=== PATIENT | female | born 1990 | race Two or more races ===

== ENCOUNTER 2019-06-02 08:32 | Inpatient (IN) | payer MEDICAID ==
[2019-06-02] VITALS (7 sets, daily range): BP systolic 97–105; BP diastolic 52–66
[~2019-06-02] VITALS: Ht 162.6 cm; Wt 58.1 kg
--- NOTE | 2019-06-02 08:43 | NUR ---
patient came in to the er c/o abd pain radiating to r lower back since this morning, +nausea vomiting. on room air, breathing evenly and unlabored, kept comfortable, will continue to monitor accordingly.
--- NOTE | 2019-06-02 08:44 | NUR ---
urine collected and sent to lab
[2019-06-02] MEDS ORDERED: ONDANSETRON HCL/PF 4 MG/2 ML VIAL IVP ONE ×2 (09:00→10:30)
[2019-06-02] MEDS ORDERED: KETOROLAC TROMETHAMINE INJ 30 MG/ML VIAL IV ONE (09:00)
[2019-06-02] MEDS ORDERED: IV NS 0.9% 1,000 ML BAG IV ONE (09:00)
[2019-06-02] MEDS ORDERED: KETOROLAC TROMETHAMINE 15 MG/ML VIAL ONE (09:02)
[2019-06-02] MEDS ORDERED: ONDANSETRON HCL/PF 4 MG/2 ML VIAL ONE ×2 (09:02→10:23)
--- NOTE | 2019-06-02 09:07 | NUR ---
blood drawned and sent to lab
[2019-06-02 09:14] LABS: BASOPHILS % (AUTO) 0.2 % (0.0-2.0); EOSINOPHILS % (AUTO) 0.2 % (0.0-6.0); HEMATOCRIT 42 % (33-45); HEMOGLOBIN 14.2 g/dL (11.5-14.8); MEAN CORPUSCULAR HGB CONC 34 g/dl (31.0-36.0); MEAN CORPUSCULAR VOLUME 91 fL (82-100); MONOCYTES # (AUTO) 0.4 /CMM (0.1-1.30); MONOCYTES % (AUTO) 4.2 % (2.0-12.0); NEUTROPHILS % (AUTO) 85.4 % (43.0-81.0); PLATELET COUNT (AUTO) 205 /CMM (150-450); RED BLOOD CELL COUNT(AUTO) 4.57 MIL/uL (4.0-5.2); WHITE BLOOD COUNT (AUTO) 10.5 K/uL (4.3-11.0)
[2019-06-02 09:16] LABS: APPEARANCE,URINE Clear (CLEAR); BILIRUBIN,URINE SMALL (NEGATIVE); BLOOD, URINE Small Ery/uL (NEGATIVE); COLOR,URINE Yellow (YELLOW); KETONES,URINE Negative (NEGATIVE); LEUKOCYTE ESTERASE ,URINE Negative (NEGATIVE); NITRITE, URINE Negative (NEGATIVE); PROTEIN,URINE Negative (NEGATIVE); UGLUCOSE Negative (NEGATIVE); UROBILINOGEN,URINE 0.2 EU/dL (0.2)
[2019-06-02 09:20] LABS: BACTERIA,URINE Few /HPF (None Seen); SQUAMOUS EPITHELIAL CELL,UR Few /HPF (None Seen); WBC,URINE 0-2 /HPF (0-3)
[2019-06-02 09:25] LABS: CALCIUM, SERUM 8.8 mg/dL (8.5-10.1); CREATININE 0.7 mg/dL (0.6-1.3); POTASSIUM 3.8 mmol/L (3.5-5.1)
[2019-06-02 09:36] LABS: BILIRUBIN,DIRECT 0.1 mg/dL (0.0-0.2); BILIRUBIN,TOTAL 0.6 mg/dL (0.2-1.0); TOTAL PROTEIN, SERUM 7.4 g/dL (6.4-8.2)
[2019-06-02] MEDS ORDERED: MORPHINE SULFATE INJ 2 MG/ML DISP.SYRIN ONE (10:23)
[2019-06-02] MEDS ORDERED: MORPHINE SULFATE INJ 2 MG/ML DISP.SYRIN IV ONE (10:30)
[2019-06-02] MEDS ORDERED: PIPERACILLIN /TAZOBACTAM 3.375 G in IV D5W 50 ML IV ONE (10:30)
--- NOTE | 2019-06-02 10:34 | NUR ---
sunday cooley its [facility]
--- NOTE | 2019-06-02 10:43 | NUR ---
[place] [place]
--- NOTE | 2019-06-02 10:46 | NUR ---
called for ms bed
--- NOTE | 2019-06-02 11:41 | NUR ---
report given to Karley ROBERTS for shana.
--- NOTE | 2019-06-02 11:54 | NUR ---
Wheeled patient via gurney accompanied by EMT in no distress. Karley at bedside to assume care.
--- NOTE | 2019-06-02 12:00 | NUR ---
MS/RN Admitting note Patient received from ER via wheelchair, A/O X4, showing no signs of acute distress or SOB. Patient weight 128 lbs. Vital signs 97/68 R 84 RR 16 T 98.0 O2 100% on RA. IV line in the LAC #18 is clean and patent. Skin is intact and patient is able to ambulate with supervision. Bed is in lowest position, side rails x2 in upright position, call light is within reach and patient is aware of how to call for assistance when needed. at the bedside. Will continue with admitting orders and current plan of care.
[2019-06-02] MEDS: IV D5/0.45 NACL 1,000 ML IV PRN (12:59)
[2019-06-02] MEDS ORDERED: MAG HYDROX/AL HYDROX/SIMETH 30 ML UDC PO PRN (13:00)
[2019-06-02] MEDS ORDERED: Z GUARD REMEDY 2 OZ OINT TP PRN (13:00)
[2019-06-02] MEDS ORDERED: ONDANSETRON HCL/PF 4 MG/2 ML VIAL IVP PRN (13:00)
[2019-06-02] MEDS ORDERED: MORPHINE SULFATE INJ 2 MG/ML DISP.SYRIN IV PRN ×2 (13:00→19:00)
[2019-06-02] MEDS ORDERED: MAGNESIUM HYDROXIDE 30 ML UDC PO PRN (13:00)
[2019-06-02] MEDS ORDERED: ZOLPIDEM TARTRATE 5 MG TABLET PO PRN (13:00)
[2019-06-02] MEDS ORDERED: ACETAMINOPHEN 325 MG TABLET PO PRN (13:00)
[2019-06-02] MEDS: PIPERACILLIN /TAZOBACTAM 3.375 G in IV D5W 100 ML IV SCH (18:13)
--- NOTE | 2019-06-02 18:47 | NUR ---
ms/rn note morphine as per Dr. Gutierrez, morphine IV changed to 2mg Q4H.
--- NOTE | 2019-06-02 18:57 | NUR ---
MS/RN Closing note Patient resting in bed, A/O x4, showing no signs of acute distress or SOB, saturating >95% on RA. Vital signs WNL. IV line on the LAC #18 is clean and running at 125 ml/hr. All patient needs met, pain medication given as needed. Patient kept NPO, awaiting for consult with Dr. Hernandez. Family is at the bedside. BEd is in lowest position, side rails x2 in upright position. Call light is within reach and patient is aware of how to call for assistance when needed. Will endorse to branch retail executive.
--- NOTE | 2019-06-02 22:20 | NUR ---
MS/RN PATIENT OFF TO OR FOR SURGERY.
[2019-06-02] MEDS ORDERED: BUPIVACAINE MPF W/EPI 0.25% 30 ML VIAL ONE (22:29)
[2019-06-02] MEDS ORDERED: MIDAZOLAM HCL 2 MG/2ML VIAL ONE (22:37)
[2019-06-02] MEDS ORDERED: SCOPOLAMINE HBR 1 EA PATCH.TD72 TD ONE (22:37)
[2019-06-02] MEDS ORDERED: ROCURONIUM BROMIDE 50 MG/5 ML ONE (22:37)
[2019-06-02] MEDS ORDERED: SEVOFLURANE 250 ML BOTTLE IH ONE (22:59)
[2019-06-02] MEDS ORDERED: DESFLURANE 240 ML BOTTLE IH ONE (22:59)
[2019-06-03] VITALS (7 sets, daily range): BP systolic 91–101; BP diastolic 45–63
--- NOTE | 2019-06-03 01:21 | NUR ---
MS/RN PATIENT CAME BACK FROM SURGERY S/P LAP APPENDECTOMY AT 0000. PATIENT WAS AWAKE, ALERT, ORIENTED, COMFORTABLE, MOVES ALL EXTREMITIES, ON VITAL SIGNS STABLE, AFEBRILE, THREE LAP SITES WITH DERMABOND. WILL MONITOR.
[2019-06-03] MEDS: IV D5/0.45 NACL 1,000 ML IV PRN (01:37)
[2019-06-03] MEDS: PIPERACILLIN /TAZOBACTAM 3.375 G in IV D5W 100 ML IV SCH ×3 (01:47→17:05)
[2019-06-03] MEDS: HYDROCODONE/APAP 5/325MG 1 EACH TABLET PO PRN ×4 (02:03→19:36)
--- NOTE | 2019-06-03 06:07 | NUR ---
MS/RN PATIENT IS AWAKE, C/O ABDOMINAL PAIN, 09/13, REQUESTED FOR PAIN MED, NORCO 1 TAB PO WA GIVEN, ALL NEEDS ATTENDED AT THIS TIME, WILL CONTINUE TO MONITOR.
[2019-06-03 06:30] LABS: BASOPHILS % (AUTO) 0.1 % (0.0-2.0); EOSINOPHILS % (AUTO) 0.2 % (0.0-6.0); HEMATOCRIT 35 % (33-45); LYMPHOCYTES % (AUTO) 16.5 % (20.0-44.0); MEAN CORPUSCULAR HGB CONC 35 g/dl (31.0-36.0); MEAN CORPUSCULAR VOLUME 90 fL (82-100); MONOCYTES # (AUTO) 0.3 /CMM (0.1-1.30); MONOCYTES % (AUTO) 5.4 % (2.0-12.0); NEUTROPHILS # (AUTO) 4.5 /CMM (1.8-8.9); NEUTROPHILS % (AUTO) 77.8 % (43.0-81.0); PLATELET COUNT (AUTO) 174 /CMM (150-450); RED BLOOD CELL COUNT(AUTO) 3.83 MIL/uL (4.0-5.2); WHITE BLOOD COUNT (AUTO) 5.8 K/uL (4.3-11.0)
[2019-06-03 06:54] LABS: CALCIUM, SERUM 7.9 mg/dL (8.5-10.1); CREATININE 0.7 mg/dL (0.6-1.3); MAGNESIUM 1.9 mg/dL (1.8-2.4); PHOSPHORUS 3.1 mg/dL (2.5-4.9); POTASSIUM 3.5 mmol/L (3.5-5.1)
--- NOTE | 2019-06-03 07:15 | NUR ---
MS/RN Patient received Patient received from night worker, sleeping soundly at this time. Appears in no distress or discomfort. IV fluids infusing at 125ml/hr, no signs of infiltration seen. Safety measures in place, call light within reach, will continue to monitor and ensure safety.
--- NOTE | 2019-06-03 08:44 | NUR ---
MS/RN S/B Dr Gutierrez Seen by Dr Gutierrez - patient to be discharged to home today once cleared by surgeons.
--- NOTE | 2019-06-03 10:00 | NUR ---
MS/RN Prescription Patient's given prescription for norco to take to any pharmacy to ensure that medication would be available for use if patient were to be discharged to home today.
[2019-06-03 10:41] LABS: THYROID STIMULATING HORMONE 0.726 uIU/mL (0.358-3.74)
--- NOTE | 2019-06-03 13:50 | NUR ---
MS/RN Pain Complaining of incisional site pain 12/14. Combs one tablet administered as ordered. Will monitor effectiveness.
--- NOTE | 2019-06-03 14:17 | NUR ---
MS/RN S/B Cristela (GRAZING EXAMINER for Dr Hernandez) Seen by GRAZING EXAMINER - patient cleared for discharge from surgical standpoint. Diet to be advanced to soft.
--- NOTE | 2019-06-03 15:00 | NUR ---
MS/RN Dr Catarino Gutierrez contacted regarding discharge order from Dr Hernandez and patient's reluctance to leave today. Informed by MD that if hugo were able to tolerate soft diet that there was no need for her to stay in the hospital. Patient informed of such.
--- NOTE | 2019-06-03 18:25 | NUR ---
MS/RN End note Patient tolerating soft diet, stating that pain is now 3/10 and not requiring medications. Complaining more of gas pain, explained to patient that abdominal cavity was pumped full of gas to enable surgeon to properly view appendix and remove laparoscopically. Encouraged to get up and ambulate as much as possible. Patient stated understanding. Dr Gutierrez again contacted to inform about patient's reluctance to leave tonight, awaiting call back. Will endorse to manager night.
--- NOTE | 2019-06-03 18:31 | NUR ---
MS/RN Hold discharge Discharge held for [facility] per Dr Gutierrez.
--- NOTE | 2019-06-03 19:42 | NUR ---
MS/RN RECEIVED PATIENT AWAKE, ALERT, ORIENTED, C/O ABDOMINAL PAIN MEDICATED WITH NORCO 1 TAB PO ORDERED. WILL MONITOR.
[2019-06-04] MEDS: PIPERACILLIN /TAZOBACTAM 3.375 G in IV D5W 100 ML IV SCH (02:12)
--- NOTE | 2019-06-04 06:32 | NUR ---
MS/RN PATIENT IS STILL SLEEPING AT THIS TIME, APPEAR COMFORTABLE, NO DISTRESS NOTED, CALL LIGHT IN REACH, ALL NEEDS ATTENDED AT THIS TIME, WILL CONTINUE TO MONITOR.
--- NOTE | 2019-06-04 07:30 | NUR ---
RN OPENING NOTES RECEIVED PATIENT IN BED RESTING COMFORTABLY. A/O X 4. NO SIGNS OF DISTRESS NOTED AT THIS TIME. IV ACCESS ON LEFT AC#18. PATENT AND INTACT. SAFETY MEASURES IN PLACE, BED IN LOW LOCKED POSITION WITH SIDE RAILS UP X2. CALL LIGHT WITHIN REACH. WILL CONTINUE TO MONITOR.
--- NOTE | 2019-06-04 09:50 | NUR ---
GLUE REEL OPERATOR NOTES PATIENT DISCHARGED IN STABLE CONDITION. A/O X4. ABLE TO MAKE NEEDS KNOWN. V/S TAKEN, STABLE AND RECORDED. PATIENT'S IV ACCESS REMOVED AND APPLIED PRESSURE DRESSING. TOOK PICTURES OF SURGICAL WOUND, FILED ON CHART. NAME ARM BAND REMOVED. ALL BELONGINGS CHECKED AND SIGNED. HEALTH TEACHING/DISCHARGE INSTRUCTIONS GIVEN AND VERBALIZED UNDERSTANDING. PATIENT LEFT UNIT VIA WHEELCHAIR WITH HOSPITAL STAFF AND , NO SIGNS OF DISTRESS NOTED. CHARGE NURSE AWARE OF DISCHARGED.
== END 2019-06-04 10:00 | disposition home or self-care (01) | DRG 234 ==
LOC: ER 08:45 → MED 11:33
PROVIDERS: ADMIT Student in an Organized Health Care Education/Training Program; ATTEND Student in an Organized Health Care Education/Training Program
PROC: 0DTJ4ZZ Resection of Appendix, Percutaneous Endoscopic Approach (ICD-10-PCS; principal; 2019-06-02)
DX: K35.80 Unspecified acute appendicitis (principal); N13.30 Unspecified hydronephrosis; R16.1 Splenomegaly, not elsewhere classified
CPT/HCPCS: 36415; 80048-TC; 80061-TC; 80076-TC; 81000-TC; 83690-TC; 83735-TC; 84100-TC; 84443-TC; 84703-TC; 85025-TC; 85610-TC; 85730-TC; 86850-TC; 87081-TC; 87086-TC; 88304-TC; G0378; J1100; J1885; J2250; J2270; J2405; J2543; J2704; J2710; J3490; J7030; J7060